=== PATIENT | male | born 1995 | race Caucasian/White ===

== ENCOUNTER 2018-09-19 00:04 | Emergency (ER) | payer OTHER ==
[2018-09-19 00:31] LABS: APPEARANCE,URINE Clear (CLEAR); BILIRUBIN,URINE Negative (NEGATIVE); COLOR,URINE Yellow (YELLOW); GLUCOSE, URINE (UA) Negative (NEGATIVE); KETONES,URINE Negative (NEGATIVE); LEUKOCYTE ESTERASE ,URINE Negative (NEGATIVE); NITRATE,URINE Negative (NEGATIVE); OCCULT BLOOD,URINE Negative (NEGATIVE); PH,URINE 7.5 (5.0-8.0); PROTEIN,URINE Negative (NEGATIVE)
[2018-09-19] MEDS ORDERED: CEFTRIAXONE SODIUM 500 MG VIAL ONE (00:56)
[2018-09-19] MEDS ORDERED: LIDOCAINE HCL-MPF 1% 2ML VIAL ONE (00:56)
[2018-09-19] MEDS ORDERED: ONDANSETRON ODT 4 MG TAB ONE (00:57)
[2018-09-19] MEDS ORDERED: AZITHROMYCIN 250 MG TABLET PO ONE (00:57)
== END 2018-09-19 01:20 | disposition home or self-care (01) ==
LOC: EDH 00:04
DX: Z20.2 Contact with and (suspected) exposure to infections with a predominantly sexual mode of transmission (principal); R30.0 Dysuria; Z88.8 Allergy status to other drugs, medicaments and biological substances
CPT/HCPCS: 81003; 87486; 87797; 96372; 99283; J0696; J3490

== ENCOUNTER 2018-11-11 17:35 | Emergency (ER) | payer SELFPAY ==
[2018-11-11] MEDS ORDERED: CEFTRIAXONE SODIUM 500 MG VIAL ONE (18:08)
[2018-11-11] MEDS ORDERED: AZITHROMYCIN 250 MG TABLET PO ONE (18:08)
[2018-11-11 18:09] LABS: APPEARANCE,URINE CLOUDY (CLEAR); BILIRUBIN,URINE NEGATIVE (NEGATIVE); COLOR,URINE YELLOW (YELLOW); GLUCOSE, URINE (UA) NEGATIVE (NEGATIVE); KETONES,URINE NEGATIVE (NEGATIVE); LEUKOCYTE ESTERASE ,URINE LARGE (NEGATIVE); NITRATE,URINE NEGATIVE (NEGATIVE); OCCULT BLOOD,URINE TRACE-INTACT (NEGATIVE); PROTEIN,URINE NEGATIVE (NEGATIVE); UROBILINOGEN,URINE 0.2 mg/dL (0.2-1.0)
[2018-11-11] MEDS ORDERED: LIDOCAINE HCL 1% 20 ML VIAL ONE (18:10)
[2018-11-11 18:27] LABS: WBC,URINE 26-50 /HPF (0-1)
[2018-11-11 18:29] LABS: BACTERIA,URINE Rare /HPF (None Seen)
[2018-11-11 18:30] LABS: SQUAMOUS EPITHELIAL CELL,UR Rare /HPF (0-2); YEAST,URINE BUDDING Few /HPF (None Seen)
== END 2018-11-11 18:35 | disposition home or self-care (01) ==
LOC: EDH 17:35
DX: N34.2 Other urethritis (principal); Z72.0 Tobacco use; Z88.8 Allergy status to other drugs, medicaments and biological substances
CPT/HCPCS: 81001; 87486; 87797; 96372; 99283; J0696

== ENCOUNTER 2018-12-09 23:05 | Emergency (ER) | payer OTHER | END 2018-12-10 01:49 | disposition home or self-care (01) | LOC: EDH 23:05 | DX: J06.9 Acute upper respiratory infection, unspecified (principal); Z88.8 Allergy status to other drugs, medicaments and biological substances; Z72.0 Tobacco use | CPT/HCPCS: 99281 ==

== ENCOUNTER 2019-05-14 20:39 | Emergency (ER) | payer OTHER ==
[2019-05-14] MEDS ORDERED: DiphenhydrAMINE HCL 50 MG/ML VIAL ONE (21:12)
[2019-05-14] MEDS ORDERED: KETOROLAC TROMETHAMINE 60 MG/2 ML VIAL ONE (21:13)
== END 2019-05-14 21:44 | disposition home or self-care (01) ==
LOC: EDH 20:39
DX: R51 Headache (principal); J45.909 Unspecified asthma, uncomplicated; Z72.0 Tobacco use; Z88.8 Allergy status to other drugs, medicaments and biological substances
CPT/HCPCS: 96372 ×2; 99284; J1200; J1885

== ENCOUNTER 2020-08-20 19:00 | Emergency (ER) | payer OTHER ==
[2020-08-20] MEDS ORDERED: TETANUS/DIPHTHERIA TOXOID [ADULT] 0.5 ML VIAL IM ONE (19:40)
[2020-08-20 19:55] LABS: BASOPHILS % (AUTO) 0.6 % (0.0-5.0); EOSINOPHILS % (AUTO) 5.1 % (0.0-8.0); HEMATOCRIT 40.8 % (42-54); LYMPHOCYTES % (AUTO) 28.9 % (21.0-51.0); MEAN CORPUSCULAR HEMOGLOBIN 32.6 pg (27.0-33.0); MEAN CORPUSCULAR HGB CONC 34.6 g/dL (32.0-36.0); MEAN CORPUSCULAR VOLUME 94.2 fL (79-99); MONOCYTES % (AUTO) 7.4 % (3.0-13.0); NEUTROPHILS % (AUTO) 57.7 % (40.0-77.0); PLATELET COUNT (AUTO) 261 K/uL (130-400); RED BLOOD CELL COUNT(AUTO) 4.33 MIL/uL (4.50-6.20); RED CELL DISTRIBUTION WIDTH 12.4 % (11.0-15.5); WHITE BLOOD COUNT (AUTO) 7.1 K/uL (4.8-10.8)
[2020-08-20 20:06] LABS: CARBON DIOXIDE 28 mmol/L (21-32); CHLORIDE 105 mmol/L (101-111); CREATININE 1.1 mg/dL (0.5-1.5); GLOMERULAR FILTR. RATE CALC 88 mL/min (>60); GLUCOSE,RANDOM 88 mg/dL (70-105); POTASSIUM 3.8 mmol/L (3.5-5.1); SODIUM SERUM 141 mmol/L (136-145); UREA NITROGEN, BLOOD 12 mg/dL (7-18)
[2020-08-20 20:12] LABS: ALANINE AMINOTRANSFERASE 20 U/L (12-78); ALBUMIN 3.6 g/dL (3.5-5.0); ALCOHOL, BLOOD < 3 mg/dL (0-10); ASPARTATE AMINOTRANSFERASE 17 U/L (10-37); BILIRUBIN,TOTAL 0.3 mg/dL (0.2-1.0); CREATINE KINASE, TOTAL 103 U/L (21-232); TOTAL PROTEIN, SERUM 7.2 g/dL (6.0-8.3)
[2020-08-20 20:13] LABS: ACETAMINOPHEN < 1 mcg/mL (10-29); SALICYLATE < 2.8 mg/dL (2.8-20.0)
[2020-08-20 20:31] LABS: APPEARANCE,URINE Clear (CLEAR); BILIRUBIN,URINE Negative (NEGATIVE); COLOR,URINE Yellow (YELLOW); GLUCOSE, URINE (UA) Negative (NEGATIVE); KETONES,URINE Negative (NEGATIVE); LEUKOCYTE ESTERASE ,URINE Negative (NEGATIVE); NITRATE,URINE Negative (NEGATIVE); OCCULT BLOOD,URINE Negative (NEGATIVE); PROTEIN,URINE Negative (NEGATIVE)
[2020-08-20 20:36] LABS: AMPHET/METH SCREEN,URINE NEGATIVE (NEGATIVE); BARBITURATE SCREEN, URINE NEGATIVE (NEGATIVE); BENZODIAZEPINES SCREEN,URINE POSITIVE (NEGATIVE); CANNABINOID SCREEN,URINE POSITIVE (NEGATIVE); COCAINE SCREEN,URINE POSITIVE (NEGATIVE); OPIATE SCREEN,URINE NEGATIVE (NEGATIVE); PHENCYCLIDINE SCREEN,URINE NEGATIVE (NEGATIVE)
== END 2020-08-20 21:25 | disposition left against medical advice (07) ==
LOC: EDH 19:00
DX: S51.811A Laceration without foreign body of right forearm, initial encounter (principal); S51.812A Laceration without foreign body of left forearm, initial encounter; T42.4X5A Adverse effect of benzodiazepines, initial encounter; J45.909 Unspecified asthma, uncomplicated; Z72.0 Tobacco use; Z88.5 Allergy status to narcotic agent; Z88.8 Allergy status to other drugs, medicaments and biological substances; X58.XXXA Exposure to other specified factors, initial encounter; Y93.89 Activity, other specified; Y92.89 Other specified places as the place of occurrence of the external cause; Y99.8 Other external cause status
CPT/HCPCS: 36415; 80053; 80305; 81003; 82550; 84484; 85025; 90471; 90714; 93005; 99284; G0481

== ENCOUNTER 2021-02-27 17:13 | Emergency (ER) | payer OTHER | END 2021-02-27 18:04 | disposition home or self-care (01) | LOC: EDH 17:13 | DX: R50.9 Fever, unspecified (principal); J45.909 Unspecified asthma, uncomplicated; Z53.21 Procedure and treatment not carried out due to patient leaving prior to being seen by health care provider ==